=== PATIENT | male | born 1980 | race Caucasian/White ===

== ENCOUNTER 2017-07-16 12:42 | Emergency (ER) | payer OTHER ==
[~2017-07-16] VITALS: Ht 182.9 cm; Wt 88.5 kg
[2017-07-16 13:34] VITALS: BP 128/76; Ht 182.9 cm; Wt 88.5 kg
== END 2017-07-16 16:14 | disposition home or self-care (01) ==
LOC: ED 12:42
DX: Z76.0 Encounter for issue of repeat prescription (principal); F20.9 Schizophrenia, unspecified; Z86.59 Personal history of other mental and behavioral disorders